=== PATIENT | female | born 1955 | race Caucasian/White ===

== ENCOUNTER 2016-06-15 15:40 | Emergency (ER) | payer BC ==
[2016-06-15 16:02] VITALS: BP 136/73
--- NOTE | 2016-06-15 16:36 | UC ---
Complaint Female HPI - HPI Summary HPI Summary: Pt presents with c/o of pelvic and low back discomfort and concern for having a UTI. [Pt c/o of pelvic pressure and mild discomfort with urination. - History Of Current Complaint Chief Complaint: UCGU Stated Complaint: URINARY Time Seen by Provider: 06/15/16 16:31 Hx Obtained From: Patient ?: No Onset/Duration: Gradual Onset, Lasting Days - 6 Timing: Constant Severity Initially: Mild Severity Currently: Mild Character: Dull Aggravating Factor(s): Urination Associated Signs And Symptoms: Positive: Back Pain - low back and pelvis - Allergies/Home Medications Allergies/Adverse Reactions: Allergies Allergy/AdvReac Type Severity Reaction Status Date / Time Codeine Allergy Severe Palpitation Verified 06/15/16 16:01 s PMH/Surg Hx/FS Hx/Imm Hx Previously Healthy: Yes Endocrine History Of: Reports: Diabetes, Thyroid Disease Cardiovascular History Of: Reports: Hypertension Cancer History Of: Denies: Breast Cancer - Surgical History Surgical History: Yes Surgery Procedure, Year, and Place: l knee replacement-- 2 yrs ago, bone spurs removed from top of right foot 2014 - Family History Known Family History: Positive: Other - positive [facility] for URI Family History: neg for HTN or CAD - Social History Alcohol Use: Rare Substance Use Type: None Smoking Status (MU): Former Smoker Type: Cigarettes When Did the Patient Quit Smoking/Using Tobacco: 40 yrs - Immunization History Most Recent Influenza Vaccination: none Review of Systems Constitutional: Negative Skin: Negative Eyes: Negative ENT: Negative Respiratory: Negative Cardiovascular: Negative Gastrointestinal: Negative Genitourinary: Other - pelvic discomfort Motor: Negative Neurovascular: Negative Musculoskeletal: Negative Neurological: Negative Psychological: Negative All Other Systems Reviewed And Are Negative: Yes Physical Exam Triage Information Reviewed: Yes Appearance: Well-Appearing Vital Signs: Initial Vital Signs Temp 97.6 F 06/15/16 15:57 Pulse 64 06/15/16 15:57 Resp 17 06/15/16 15:57 BP 136/73 06/15/16 15:57 Pulse Ox 100 06/15/16 15:57 Vital Signs Reviewed: Yes Eye Exam: Normal ENT Exam: Normal Neck exam: Normal Respiratory Exam: Normal Cardiovascular Exam: Normal Abdominal Exam: Normal Musculoskeletal Exam: Normal Neurological Exam: Normal Psychological Exam: Normal Skin Exam: Normal Complaint Female Dx - Course Course Of Treatment: I discussed with the pt the results of her UA and the other urine testing that I ordered. The pt verbalized understanding and agreed to plan of care - Differential Dx/Diagnosis Differential Diagnosis/HQI/PQRI: Urinary Tract Infection, Other - pelvic discomfort Provider Diagnoses: UTI Discharge - Discharge Plan Condition: Stable Disposition: HOME Prescriptions: Cephalexin CAP* [Keflex 500 CAP*] 500 mg PO Q12H #10 cap Patient Education Materials: Urinary Tract Infection in Women (ED) Referrals: Mayco Avery MD [Primary Care Provider] - If Needed (Please follow up with your PCP or return to clinic as needed. )
== END 2016-06-15 16:54 | disposition home or self-care (01) ==
LOC: UCCORT 15:40
DX: N39.0 Urinary tract infection, site not specified (principal); I10 Essential (primary) hypertension; Z96.652 Presence of left artificial knee joint; Z88.5 Allergy status to narcotic agent; Z87.891 Personal history of nicotine dependence
CPT/HCPCS: 81003; 87086; 99212; G0463

== ENCOUNTER 2017-10-16 10:29 | Emergency (ER) | payer BC ==
[2017-10-16 10:51] VITALS: BP 156/88
--- NOTE | 2017-10-16 11:18 | UC ---
Complaint Female HPI - HPI Summary HPI Summary: pt states " I think I have a kidney infection". pt describes a "tingly sensation " with urination for the past 2-3 days. also had a mild ache in L back and some occasional mild nausea. Had a pyelonephritis years ago that presented the same. tx out pt then and did fine. denies v/d/f/c. urine is foul smelling this am. hx DM but BS stable with avg 110. - History Of Current Complaint Chief Complaint: UCGU Stated Complaint: URINARY/BACK COMPLAINT Time Seen by Provider: 10/16/17 11:08 Hx Obtained From: Patient Onset/Duration: Gradual Onset Timing: Constant Pain Intensity: 4 Alleviating Factor(s): Nothing - Allergies/Home Medications Allergies/Adverse Reactions: Allergies Allergy/AdvReac Type Severity Reaction Status Date / Time codeine Allergy Palpitation Verified 10/16/17 10:47 s Home Medications: Home Medications Aspirin TAB* [Aspirin 325 MG TAB*] 325 mg PO DAILY 10/16/17 [History Confirmed 10/16/17] Cranberry 400 mg PO DAILY 10/16/17 [History Confirmed 10/16/17] L.acidoph,Paracasei, B.lactis [Probiotic] 1 each PO DAILY 10/16/17 [History Confirmed 10/16/17] PMH/Surg Hx/FS Hx/Imm Hx Endocrine History: Diabetes, Thyroid Disease Cardiovascular History: Hypertension - Surgical History Surgical History: Yes Surgery Procedure, Year, and Place: l knee replacement-- 2 yrs ago, bone spurs removed from top of right foot 2014 - Family History Known Family History: Positive: Other - positive [facility] for URI Family History: neg for HTN or CAD - Social History Occupation: Retired Lives: With Family Alcohol Use: Rare Substance Use Type: None Smoking Status (MU): Former Smoker Type: Cigarettes When Did the Patient Quit Smoking/Using Tobacco: 50+ yrs - Immunization History Most Recent Influenza Vaccination: none Vaccination Up to Date: Yes Review of Systems Constitutional: Negative Skin: Negative Eyes: Negative ENT: Negative Respiratory: Negative Cardiovascular: Negative Gastrointestinal: Nausea Genitourinary: Dysuria Motor: Negative Neurovascular: Negative Musculoskeletal: Other: - L back ache Neurological: Negative Psychological: Negative Is Patient Immunocompromised?: No All Other Systems Reviewed And Are Negative: Yes Physical Exam Triage Information Reviewed: Yes Appearance: Well-Appearing Vital Signs: Initial Vital Signs Temp 97.6 F 10/16/17 10:42 Pulse 84 10/16/17 10:42 Resp 16 10/16/17 10:42 BP 156/88 10/16/17 10:42 Pulse Ox 100 10/16/17 10:42 Vital Signs Reviewed: Yes Eyes: Positive: Conjunctiva Clear ENT: Positive: Pharynx normal, TMs normal. Negative: Nasal congestion, Nasal drainage Neck: Positive: Supple, Nontender, No Lymphadenopathy Respiratory: Positive: Lungs clear, Normal breath sounds Cardiovascular: Positive: RRR, No Murmur Abdomen Description: Positive: Nontender, No Organomegaly, Soft, CVA Tenderness (L) - +/-. Negative: CVA Tenderness (R) Bowel Sounds: Positive: Present Musculoskeletal: Positive: ROM Intact, No Edema Neurological: Positive: Alert Psychological: Positive: Age Appropriate Behavior Skin Exam: Normal Diagnostics - Laboratory Diagnostic Studies Completed/Ordered: U/A 3+ lukocytes with culture pending. Complaint Female Dx - Course Course Of Treatment: hx and pE c/w uti and possible early pyelonephritis. will tx with cipro and close f/u. need to ER evaluation stressed for any changes or worsening, pt agrees. - Differential Dx/Diagnosis Provider Diagnoses: UTI. Possible early pyelonephritis Discharge - Sign-Out/Discharge Documenting (check all that apply): Patient Departure - Discharge Plan Condition: Stable Disposition: HOME Prescriptions: Ciprofloxacin TAB* [Cipro 500 MG TAB*] 500 mg PO BID 7 Days #14 tab Patient Education Materials: Urinary Tract Infection in Women (DC), Kidney Infection (ED) Referrals: Mayco Avery MD [Primary Care Provider] - 2 Days - Billing Disposition and Condition Condition: STABLE Disposition: Home
--- NOTE | 2017-10-18 08:30 | UC ---
- Progress Note Progress Note: Negative culture can stop antibiotics f/u with PCP as directed Discharge - Sign-Out/Discharge Documenting (check all that apply): Patient Departure - Discharge Plan Condition: Stable Disposition: HOME Prescriptions: Ciprofloxacin TAB* [Cipro 500 MG TAB*] 500 mg PO BID 7 Days #14 tab Patient Education Materials: Urinary Tract Infection in Women (DC), Kidney Infection (ED) Referrals: Mayco Avery MD [Primary Care Provider] - 2 Days - Billing Disposition and Condition Condition: STABLE Disposition: Home
== END 2017-10-16 11:29 | disposition home or self-care (01) ==
LOC: UCCORT 10:29
DX: N39.0 Urinary tract infection, site not specified (principal); E11.9 Type 2 diabetes mellitus without complications; I10 Essential (primary) hypertension; Z79.4 Long term (current) use of insulin; Z88.5 Allergy status to narcotic agent; Z87.448 Personal history of other diseases of urinary system; Z96.652 Presence of left artificial knee joint; Z87.891 Personal history of nicotine dependence
CPT/HCPCS: 81003; 87086; 99212; G0463